=== PATIENT | male | born 1980 | race Caucasian/White ===

== ENCOUNTER 2017-01-31 01:14 | Emergency (ER) | payer SELFPAY ==
[~2017-01-31] VITALS: Ht 172.7 cm; Wt 79.2 kg
[2017-01-31 01:16] VITALS: BP 150/90
[2017-01-31] MEDS ORDERED: DIPH,PERTUSS(ACELL),TET VAC/PF 0.5 ML IM-VACC ONE ×2 (01:38→02:00)
== END 2017-01-31 02:30 | disposition home or self-care (01) ==
LOC: ED 02:15
DX: S60.222A Contusion of left hand, initial encounter (principal); G89.11 Acute pain due to trauma; W29.8XXA Contact with other powered hand tools and household machinery, initial encounter; Y93.89 Activity, other specified; Y92.009 Unspecified place in unspecified non-institutional (private) residence as the place of occurrence of the external cause; Y99.8 Other external cause status
CPT/HCPCS: 90471; 90715